=== PATIENT | female | born 1965 | race Caucasian/White ===

== ENCOUNTER 2020-07-01 14:32 | Emergency (ER) | payer OTHER ==
[~2020-07-01] VITALS: Ht 165.1 cm; Wt 101.2 kg
[2020-07-01 14:47] VITALS: BP_SYST 151
[2020-07-01 16:18] LABS: BASOPHILS % (AUTO) 0.5 % (0.0-2.0); EOSINOPHILS # (AUTO) 0.3 K/uL (0.0-0.4); EOSINOPHILS % (AUTO) 3.3 % (0.0-4.0); HEMATOCRIT 39.4 % (36-48); HEMOGLOBIN 12.9 g/dL (12.0-16.0); LYMPHOCYTES % (AUTO) 22.8 % (20.5-51.5); MEAN CORPUSCULAR HEMOGLOBIN 28 pg (27-31); MEAN CORPUSCULAR HGB CONC 33 % (32-36); MEAN CORPUSCULAR VOLUME 87 fL (79.0-98.0); MONOCYTES # (AUTO) 0.8 K/uL (0.0-1.0); MONOCYTES % (AUTO) 9.3 % (1.7-9.3); NEUTROPHILS # (AUTO) 5.5 K/uL (1.8-7.7); NEUTROPHILS % (AUTO) 64.1 % (40.0-70.0); PLATELET COUNT (AUTO) 166 K/uL (130-430); PROTHROMBIN TIME 10.7 SECS (9.5-12.5); RED BLOOD CELL COUNT(AUTO) 4.55 MIL/uL (4.2-6.2); RED CELL DISTRIBUTION WIDTH 15.1 % (9.0-15.0); WHITE BLOOD COUNT (AUTO) 8.6 K/uL (4.8-10.8)
[2020-07-01 16:41] LABS: CALCIUM 8.3 mg/dL (8.4-11.0); CREATININE 0.75 mg/dL (0.55-1.30); POTASSIUM 3.5 mmol/L (3.5-5.1)
[2020-07-01 16:42] LABS: ALBUMIN 3.9 g/dL (3.4-4.8); TOTAL BILIRUBIN 0.9 mg/dL (0.0-1.0)
[2020-07-01 17:11] LABS: ERYTHROCYTE SEDIMENTATION RATE 23 MM/HR (0-20)
[2020-07-01 17:14] LABS: C-REACTIVE PROTEIN QUANT 1.9 mg/dL (0-0.5)
[2020-07-01 18:45] VITALS: BP_SYST 151
== END 2020-07-01 18:45 | disposition home or self-care (01) ==
LOC: SED 14:32
DX: M54.2 Cervicalgia (principal)
CPT/HCPCS: 36415; 72125-TC; 80053; 81025; 84703; 85025; 85610-TC; 85651-TC; 85730-TC; 86140; 99284